=== PATIENT | female | born 1990 | race Two or more races ===

== ENCOUNTER 2020-06-30 20:32 | Emergency (ER) | payer OTHER, MEDICAID ==
[~2020-06-30] VITALS: Ht 149.9 cm; Wt 60.7 kg
--- NOTE | 2020-06-30 21:02 | NUR ---
pt reports coming into ed for midback pain that started yesterday, unknown cause and anxiety, pt reports taking 1000mg tylenol at 1500. pt reports her anxiety may be spiked due to a relapse in alcohol use the past few days,. pt placed on monitoring, nad, vss, wctm.
--- NOTE | 2020-06-30 21:36 | NUR ---
pt resting on gurney, nad, provided warm blankets for comfort, no change in condition. denies additional needs at this time. bed in lowest, call light on lap, rails engaged, wctm.
[2020-06-30 22:00] LABS: BASOPHILS % (AUTO) 1 % (0-1); EOSINOPHILS % (AUTO) 2 % (1-7); LYMPHOCYTES % (AUTO) 30 % (22-44); MEAN CORPUSCULAR HEMOGLOBIN 31.7 pg (27.0-34.8); MEAN CORPUSCULAR HGB CONC 33.6 g/dL (32.4-35.8); MEAN PLATELET VOLUME 7.9 fL (7.4-10.4); MONOCYTES % (AUTO) 5 % (2-9); NEUTROPHILS % (AUTO) 62 % (42-75); PLATELET COUNT 241 x10^3/uL (130-400); RED BLOOD COUNT 4.35 x10^6/uL (3.82-5.3); RED CELL DISTRIBUTION WIDTH 14.1 % (9.6-15.2)
[2020-06-30] MEDS ORDERED: KETOROLAC 30 MG/1 ML IM ONE (22:00)
[2020-06-30] MEDS ORDERED: LORazepam 1MG TABLET PO ONE (22:00)
[2020-06-30 22:02] LABS: MD NO
[2020-06-30 22:12] LABS: ALANINE AMINOTRANSFERASE 22 U/L (12-78); ALBUMIN 3.8 g/dL (3.4-5.0); ANION GAP 7 mmol/L (5-15); CALCIUM 8.2 mg/dL (8.5-10.1); CHLORIDE 108 mmol/L (98-107); CREATININE 0.68 mg/dL (0.55-1.02)
[2020-06-30 22:16] LABS: ALKALINE PHOSPHATASE 77 U/L (45-117); BILIRUBIN,TOTAL 0.6 mg/dL (0.2-1.0); TOTAL PROTEIN 7.4 g/dL (6.4-8.2)
--- NOTE | 2020-06-30 22:17 | NUR ---
pt up to restroom with a smooth and steady gait, appears comfortable, bed in lowest, rails engaged, call light on lap, ua obtained and sent to lab, pt nad, denies additional questions or needs, wctm.
[2020-06-30 22:35] LABS: MICROSCOPIC AUTO
[2020-06-30] MEDS ORDERED: LORazepam 1MG TABLET ONE (22:40)
[2020-06-30] MEDS ORDERED: KETOROLAC 30 MG/1 ML ONE (22:40)
[2020-06-30 22:45] VITALS: BP 113/77
== END 2020-06-30 23:22 | disposition home or self-care (01) ==
LOC: ED 21:02
DX: S39.012A Strain of muscle, fascia and tendon of lower back, initial encounter (principal); F41.1 Generalized anxiety disorder; M54.6 Pain in thoracic spine; F10.10 Alcohol abuse, uncomplicated; Y90.0 Blood alcohol level of less than 20 mg/100 ml; Z87.442 Personal history of urinary calculi; X58.XXXA Exposure to other specified factors, initial encounter; Y93.89 Activity, other specified; Y92.89 Other specified places as the place of occurrence of the external cause; Y99.8 Other external cause status
CPT/HCPCS: 36415; 80053; 81001; 84703; 85025; 87086; 96372; 99283; J1885